=== PATIENT | female | born 1960 | race Caucasian/White ===

== ENCOUNTER 2017-05-15 06:35 | Emergency (ER) | payer OTHER ==
[2017-05-15] MEDS ORDERED: Meclizine TAB* 12.5 MG PO ONE (07:35)
[2017-05-15] MEDS ORDERED: Ondansetron INJ* 2 MG/ML VIAL IV ONE (07:35)
[2017-05-15] MEDS ORDERED: NS 0.9% 1000 ML* 2,000 ML IV ONE (07:35)
[2017-05-15 08:10] LABS: Hematocrit 44 % (35-47); Hemoglobin 14.8 g/dl (12.0-16.0); Mean Corpuscular HGB Conc 34 g/dl (31-36); Mean Corpuscular Hemoglobin 33 pg (27-31); Mean Corpuscular Volume 97 fL (80-97); Mean Platelet Volume 8 um3 (7.4-10.4); Red Blood Count 4.55 10^6/ul (4.0-5.4); Red Cell Distribution Width 13 % (10.5-15)
[2017-05-15 08:22] LABS: Albumin 4.5 g/dL (3.2-5.2); BUN/Creatinine Ratio 20.9 (8-20); Calcium 9.9 mg/dL (8.6-10.3); EGFR African American 116.7 (>60); EGFR Non-African American 90.7 (>60); Globulin 3.2 g/dL (2-4); Magnesium 1.9 mg/dL (1.9-2.7); Potassium 4.1 mmol/L (3.5-5.0); Total Bilirubin 0.5 mg/dL (0.2-1.0); Total Protein 7.7 g/dL (6.4-8.9)
[2017-05-15 08:24] LABS: Troponin I 0.01 ng/mL (<0.04)
[2017-05-15 08:50] LABS: TSH (Thyroid Stimulating Horm) 1.25 mcIU/mL (0.34-5.60)
--- NOTE | 2017-05-15 08:57 | RAD ---
INDICATION: Syncope COMPARISON: None TECHNIQUE: Noncontrast axial source images were acquired from the skull base to the vertex. FINDINGS: Ventricles/sulci: The ventricles and cisterns are normal in size and configuration for age. Brain parenchyma: There is no focal parenchymal finding, evidence of intracranial mass, or intracranial mass effect. Intracranial hemorrhage:None. Extra-axial spaces: There are no abnormal extra axial fluid collections or evidence of extra-axial mass. Calvarium: There is no calvarial fracture or other calvarial abnormality. Scalp: There is no evidence of scalp or extracalvarial soft tissue abnormality. Paranasal sinuses/mastoid: The paranasal sinuses and mastoid air cells are clear. Other: None. IMPRESSION: NEGATIVE EXAMINATION
[2017-05-15 10:17] VITALS: BP 130/83
--- NOTE | 2017-05-15 19:00 | ED ---
Yary Mabry Seung-Jae, scribed for Jeremy Massey MD on 05/15/17 at 0742 . Dizziness - HPI Summary HPI Summary: Pt is a 57 y/o F presenting to the ED w/ c/o dizziness. Dizziness was described as a pass out feeling accompanied by a "ship rocking" sensation and was onset this morning around 06:00am. Associated Sx included nausea, ringing in the ears and blurred vision. Pt denies presence of CP, SOB, STILL, burning dysuria, congestion, slurred speech, calf tenderness, weakness in legs, slurred speech, and decreased hearing. Dizziness does not seem to be aggravated by changing positions of the body. Pt states that she had been blistered by a plant thorn a week ago while gardening and is concerned that this may be the cause of her dizziness. She denies any tick bites. Pt does not smoke, but drinks occasionally and denies any recent infections. Pt has no fmhx of heart disease. - History Of Current Complaint Chief Complaint: EDDizziness Stated Complaint: DIZZY Hx Obtained From: Patient Onset/Duration: Suddenly Timing: Intermittent Episode Lasting Character: Lightheaded Aggravating Factor(s): Nothing Alleviating Factor(s): Nothing Associated Signs And Symptoms: Positive: Nausea, Tinnitus, Visual Changes. Negative: Chest Pain, SOB - Allergies/Home Medications Allergies/Adverse Reactions: Allergies Allergy/AdvReac Type Severity Reaction Status Date / Time Oxycodone [From Oxycontin] Allergy Vomiting Verified 06/07/16 08:29 PMH/Surg Hx/FS Hx/Imm Hx Endocrine/Hematology History: Denies: Hx Diabetes Cardiovascular History: Reports: Hx Hypertension - CONTROL WITH MEDS, Hx Valvular Heart Disease - AORTIC VALVE REPLACEMENT, 2010 ([facility]) Denies: Hx Pacemaker/ICD Respiratory History: Denies: Hx Asthma Musculoskeletal History: Reports: Hx Arthritis - LEFT KNEE Sensory History: Reports: Hx Contacts or Glasses - READING GLASSES Denies: Hx Hearing Aid Opthamlomology History: Reports: Hx Contacts or Glasses - READING GLASSES Psychiatric History: Denies: Hx Panic Disorder - Surgical History Surgery Procedure, Year, and Place: 1978 & 1985 LEFT KNEE MENISCUS REPAIR X 2 - / [place] [facility] [place] CSE[place] 2[place]. 2010 AORTIC HEART VALVE REPLACEMENT, [employer] Hx Anesthesia Reactions: Yes - N/V WITH GENERAL Infectious Disease History: No Infectious Disease History: Denies: Traveled Outside the [place] in Last 30 Days - Family History Known Family History: Negative: Other - no stroke in family history no adverse reaction to anesthesia. - Social History Alcohol Use: Weekly Substance Use Type: Reports: None Smoking Status (MU): Never Smoked Tobacco Review of Systems Constitutional: Negative Positive: Blurred Vision ENT: Negative Positive: Other - tinnitus Cardiovascular: Negative Negative: Chest Pain Respiratory: Negative Negative: Shortness Of Breath Positive: Nausea. Negative: Diarrhea Genitourinary: Negative Negative: dysuria Musculoskeletal: Negative Skin: Negative Neurological: Other - positive dizziness Negative: Headache, Weakness Psychological: Normal All Other Systems Reviewed And Are Negative: Yes Physical Exam - Summary Physical Exam Summary: The patient is well-nourished in no acute distress and in no acute pain. Diaphoretic. skin color reflects adequate perfusion. HEENT: The head is normocephalic and atraumatic. The pupils are equal and reactive. Nares are patent and without drainage. Mouth reveals moist mucous membranes and the throat is without erythema and exudate. The external ears are intact. The ear canals are patent and without drainage. The tympanic membranes are intact. Neck is supple with full range of motion and non-tender. There are no carotid bruits. There is no neck vein distension. Respiratory: Chest is non-tender. Lungs are clear to auscultation and breath sounds are symmetrical and equal. Cardiovascular: Hear is regular rate and rhythm. There is no murmur or rub auscultated. There is no peripheral edema and pulses are symmetrical and equal. Abdomen: The abdomen is soft and non-tender. There are normal bowel sounds heard in all four quadrants and there is no organomegaly palpated. Musculoskeletal: There is no back pain noted. Extremities are non-tender with full range of motion. There is good capillary refill. There is no peripheral edema or calf tenderness elicited. Neurological: Patient is alert and oriented to person, place and time. The patient has symmetrical motor strength in all four extremities. Cranial nerves are grossly intact. Deep tendon reflexes are symmetrical and equal in all four extremities. Postive nystagmus. Negative facial droop. Psychiatric: The patient has an appropriate affect and does not exhibit any anxiety or depression. Triage Information Reviewed: Yes Vital Signs On Initial Exam: Initial Vitals Temp Pulse Resp BP Pulse Ox 96.6 F 86 22 185/94 100 05/15/17 06:41 05/15/17 06:41 05/15/17 06:41 05/15/17 06:41 05/15/17 06:41 Vital Signs Reviewed: Yes - Landing Coma Scale Coma Scale Total: 15 Diagnostics - Vital Signs Vital Signs Temp Pulse Resp BP Pulse Ox 05/15/17 06:45 18 05/15/17 06:43 96.6 F 77 22 189/94 100 05/15/17 06:41 96.6 F 86 22 185/94 100 - Laboratory Lab Results: Lab Results 05/15/17 05/15/17 05/15/17 Range/Units 07:55 07:55 07:55 WBC 7.0 (3.5-10.8) 10^3/ul RBC 4.55 (4.0-5.4) 10^6/ul Hgb 14.8 (12.0-16.0) g/dl Hct 44 (35-47) % MCV 97 (80-97) fL MCH 33 H (27-31) pg MCHC 34 (31-36) g/dl RDW 13 (10.5-15) % Plt Count 253 (150-450) 10^3/ul MPV 8 (7.4-10.4) um3 Neut % (Auto) 68.6 (38-83) % Lymph % (Auto) 20.0 L (25-47) % Carroll % (Auto) 9.0 (1-9) % Eos % (Auto) 1.9 (0-6) % Baso % (Auto) 0.5 (0-2) % Absolute Neuts (auto) 4.8 (1.5-7.7) 10^3/ul Absolute Lymphs (auto) 1.4 (1.0-4.8) 10^3/ul Absolute Monos (auto) 0.6 (0-0.8) 10^3/ul Absolute Eos (auto) 0.1 (0-0.6) 10^3/ul Absolute Basos (auto) 0 (0-0.2) 10^3/ul Absolute Nucleated RBC 0 10^3/ul Nucleated RBC % 0 Sodium 137 (133-145) mmol/L Potassium 4.1 (3.5-5.0) mmol/L Chloride 102 (101-111) mmol/L Carbon Dioxide 26 (22-32) mmol/L Anion Gap 9 (2-11) mmol/L BUN 14 (6-24) mg/dL Creatinine 0.67 (0.51-0.95) mg/dL Est GFR ( Amer) 116.7 (>60) Est GFR (Non-Af Amer) 90.7 (>60) BUN/Creatinine Ratio 20.9 H (8-20) Glucose 92 (70-100) mg/dL Lactic Acid 1.0 (0.5-2.0) mmol/L Calcium 9.9 (8.6-10.3) mg/dL Magnesium 1.9 (1.9-2.7) mg/dL Total Bilirubin 0.50 (0.2-1.0) mg/dL AST 23 (13-39) U/L ALT 30 (7-52) U/L Alkaline Phosphatase 64 (34-104) U/L Troponin I 0.01 (<0.04) ng/mL Total Protein 7.7 (6.4-8.9) g/dL Albumin 4.5 (3.2-5.2) g/dL Globulin 3.2 (2-4) g/dL Albumin/Globulin Ratio 1.4 (1-3) TSH 1.25 (0.34-5.60) mcIU/mL Result Diagrams: 05/15/17 07:55 05/15/17 07:55 Lab Statement: Any lab studies that have been ordered have been reviewed, and results considered in the medical decision making process. - CT Brain CT CT Interpretation: No Acute Changes - Impression: negative exam CT Interpretation Completed By: Radiologist - EKG 06:56 Cardiac Rate: NL - 77 bpm EKG Rhythm: Sinus Rhythm ST Segment: Normal EKG Interpretation: LBBB, normal axis Dizzy Course/Dx - Course Assessment/Plan: t is a 57 y/o F presenting to the ED w/ c/o dizziness. Dizziness was described as a pass out feeling accompanied by a "ship rocking" sensation and was onset this morning around 06:00am. EKG was normal, and Brain CT was a negative exam. Pt was treated in ED with Zofran, Meclizine and fluid. Pt is D/C with f/u with Dr. Hong. - Diagnoses Differential Diagnosis/HQI/PQRI: CVA, Hypovolemia, Labyrinthitis, Metabolic Abnormality, Myocardial Infarction, Other - dehydration, meniere's disease Provider Diagnoses: Dehydration, Labyrinthitis Discharge - Discharge Plan Condition: Stable Disposition: HOME Prescriptions: Meclizine TAB* [Antivert 12.5 TAB*] 25 mg PO QID #30 tab Patient Education Materials: Meclizine (By mouth), Dehydration (ED), Labyrinthitis (ED) Forms: *Work Release Referrals: Angelo Hong MD [Primary Care Provider] - 2 Days The documentation as recorded by the Yary rodriguez Seung-Jae accurately reflects the service I personally performed and the decisions made by , Jeremy Massey MD.
== END 2017-05-15 10:17 | disposition home or self-care (01) ==
LOC: ED 06:35
DX: E86.0 Dehydration (principal); H83.09 Labyrinthitis, unspecified ear; R11.0 Nausea; I10 Essential (primary) hypertension; Z95.4 Presence of other heart-valve replacement; Z88.5 Allergy status to narcotic agent
CPT/HCPCS: 36415; 70450; 80053; 83605; 83735; 84443; 84484; 85025; 93005; 96361; 96374; 99284

== ENCOUNTER 2018-05-05 18:28 | Emergency (ER) | payer OTHER ==
--- NOTE | 2018-05-05 19:41 | RAD ---
INDICATION: Left foot injury. TECHNIQUE: 3 views of the left foot were obtained. FINDINGS: There is diffuse soft tissue swelling. There is a small linear bony density adjacent to the lateral anterior aspect of the calcaneus most consistent with a small avulsion fracture fragment. There is mild osteoarthritic changes in the first metatarsal-phalangeal joint. IMPRESSION: SMALL AVULSION FRACTURE FRAGMENT ARISING FROM THE LATERAL CALCANEUS.
--- NOTE | 2018-05-05 20:14 | RAD ---
INDICATION: Left lower leg injury. TECHNIQUE: 2 views of the left lower leg were obtained. FINDINGS: The bones are in normal alignment. There is lateral soft tissue swelling. There is a small linear avulsion fracture fragment arising from the lateral calcaneus. IMPRESSION: SMALL AVULSION FRACTURE FRAGMENT ARISING FROM THE LATERAL CALCANEUS.
[2018-05-05 20:50] VITALS: BP 118/68
--- NOTE | 2018-05-05 20:59 | ED ---
Lower Extremity - HPI Summary HPI Summary: Patient is a 58-year-old female presenting to the ED [place] and feeling as though she twisted her ankle and the lateral part of her right foot. She endorses ecchymosis to the medial and lateral side of the foot extending into the dorsum of the foot. She was able to ambulate for approximately 30-45 minutes afterwards. Denies taking any medication prior to arrival. She has never injured the foot or ankle in the past. Pain radiates just superior to the ankle joint without extension up into the knee or just inferior to the knee. Denies any pain to the toes. Pulses +2 bilaterally. Good cap refill. - History of Current Complaint Chief Complaint: EDExtremityLower Stated Complaint: RT ANKLE INJURY Time Seen by Provider: 05/05/18 18:50 Hx Obtained From: Patient Mechanism Of Injury: Twisted Onset of Pain: Minutes Onset/Duration: Minutes Severity Initially: Moderate Severity Currently: Moderate Pain Intensity: 3 Pain Scale Used: 0-10 Numeric Timing: Constant Location: Is Discrete @ - left lateral foot Associated Signs And Symptoms: Positive: Bruising. Negative: Swelling, Redness , Fever, Weakness Aggravating Factor(s): Standing, Ambulation Alleviating Factor(s): Rest Able to Bear Weight: No - Risk Factors Gout Risk Factors: Negative DVT Risk Factors: Negative Septic Arthritis Risk Factor: Negative - Allergies/Home Medications Allergies/Adverse Reactions: Allergies Allergy/AdvReac Type Severity Reaction Status Date / Time oxycodone Allergy Vomiting Verified 05/05/18 18:35 PMH/Surg Hx/FS Hx/Imm Hx Previously Healthy: Yes Endocrine/Hematology History: Denies: Hx Diabetes Cardiovascular History: Reports: Hx Hypertension - CONTROL WITH MEDS, Hx Valvular Heart Disease - AORTIC VALVE REPLACEMENT, 2010 ([facility]) Denies: Hx Pacemaker/ICD Respiratory History: Denies: Hx Asthma Musculoskeletal History: Reports: Hx Arthritis - LEFT KNEE Sensory History: Reports: Hx Contacts or Glasses - READING GLASSES Denies: Hx Hearing Aid Opthamlomology History: Reports: Hx Contacts or Glasses - READING GLASSES Psychiatric History: Denies: Hx Panic Disorder - Surgical History Surgery Procedure, Year, and Place: 1978 & 1985 LEFT KNEE MENISCUS REPAIR X 2 - [place]/ 2007 ONCE AT [facility] [place]. 1991 & 1993 CSECTIONS X 2, [place]. 2010 AORTIC HEART VALVE REPLACEMENT, [employer] Hx Anesthesia Reactions: Yes - N/V WITH GENERAL Infectious Disease History: No Infectious Disease History: Denies: Traveled Outside the [place] in Last 30 Days - Family History Known Family History: Negative: Other - no stroke in family history no adverse reaction to anesthesia. - Social History Occupation: Employed Full-time Lives: With Family Alcohol Use: Weekly Hx Substance Use: No Substance Use Type: Reports: None Smoking Status (MU): Never Smoked Tobacco Review of Systems Constitutional: Negative Negative: Fever, Chills, Fatigue, Skin Diaphoresis Negative: Palpitations, Chest Pain Negative: Shortness Of Breath Genitourinary: Negative Positive: no symptoms reported, see HPI Positive: Arthralgia - left lateral foot pain Positive: Bruising Neurological: Negative All Other Systems Reviewed And Are Negative: Yes Physical Exam Triage Information Reviewed: Yes Vital Signs On Initial Exam: Initial Vitals Temp Pulse Resp BP Pulse Ox 98.5 F 103 18 151/85 97 05/05/18 18:31 05/05/18 18:31 05/05/18 18:31 05/05/18 18:31 05/05/18 18:31 Vital Signs Reviewed: Yes Appearance: Positive: Well-Appearing, No Pain Distress Skin: Positive: Warm, Skin Color Reflects Adequate Perfusion, Other - ecchymosis to the lateral foot Eyes: Positive: EOMI, BRANDEE, Conjunctiva Clear Neck: Positive: Supple, No Lymphadenopathy Respiratory/Lung Sounds: Positive: Clear to Auscultation, Breath Sounds Present Cardiovascular: Positive: RRR, Pulses are Symmetrical in both Upper and Lower Extremities Musculoskeletal: Positive: Pain @ - left lateral foot Neurological: Positive: Speech Normal Psychiatric: Positive: Normal, Affect/Mood Appropriate AVPU Assessment: Alert Diagnostics - Vital Signs Vital Signs Temp Pulse Resp BP Pulse Ox 05/05/18 20:49 98.1 F 81 16 118/68 99 05/05/18 18:31 98.5 F 103 18 151/85 97 - Laboratory Lab Statement: Any lab studies that have been ordered have been reviewed, and results considered in the medical decision making process. Lower Extremity Course/Dx - Course Course Of Treatment: On physical examination, strength intact. No numbness or tingling. Small avulsion fracture fragment arising from the lateral calcaneus. Bulky dressing with posterior splint applied. Patient will remain nonweightbearing. Elevation and ibuprofen at this time. She will follow-up with orthopedics in 2-3 days. Note is given for work. While casting is generally not preferred for non-displaced fractures and early range of motion is usually course of treatment, will defer this to ortho and bulky dressing with non-weight bearing preferred until further evaluation. - Diagnoses Differential Diagnosis/HQI/PQRI: Positive: Sprain, Strain, Other - calcaneal fracture Provider Diagnoses: Avulsion fracture of calcaneus Discharge - Sign-Out/Discharge Documenting (check all that apply): Discharge/Admit/Transfer - Discharge Plan Condition: Stable Disposition: HOME Patient Education Materials: Calcaneal Fracture (ED) Forms: *Work Release Referrals: Aneglo Hong MD [Primary Care Provider] - Jamil Sprague MD [Medical Doctor] - Additional Instructions: Please follow up with orthopedics next week Call on Monday morning to make an appt Ibuprofen 600mg three times daily for 4-5 days DO NOT BEAR ANY WEIGHT TO THE FOOT Crutches for ambulation Elevate - Billing Disposition and Condition Condition: STABLE Disposition: Home
== END 2018-05-05 20:49 | disposition home or self-care (01) ==
LOC: ED 18:28
DX: S92.002A Unspecified fracture of left calcaneus, initial encounter for closed fracture (principal); X50.0XXA Overexertion from strenuous movement or load, initial encounter; Y92.39 Other specified sports and athletic area as the place of occurrence of the external cause; I10 Essential (primary) hypertension; Z79.899 Other long term (current) drug therapy; Z88.5 Allergy status to narcotic agent; Z95.2 Presence of prosthetic heart valve
CPT/HCPCS: 99282

== ENCOUNTER 2019-12-07 16:48 | Emergency (ER) | payer OTHER ==
--- OUTSIDE RECORDS SUMMARY | 2019-12-07 17:15 | XMS REPORT | Summary of Care ---
:1960 Author Organization [facility] Address [address] [place] [address] [address] Care Team Providers Name Role Phone Angelo Hong Primary Care Provider Reason for Visit Reason Comments Hand Pain Encounter Details Date Type Department Care Team Description 10/18/2019 Office Visit BFS Occupational [place], Primary localized Therapy Oral, osteoarthrosis of right [address] OTR/L hand (Primary Dx) [id number] [facility] [address] [place] [address] [phone] Allergies Active Allergy Reactions Severity Noted Date Comments Hydrocodone GI Reaction 03/24/2011 vomiting documented as of this encounter (statuses as of 10/18/2019) Medications Medication Sig Dispensed Refills Start Date End Date Status acetaminophen (TYLENOL) Take 1-2 Tabs by 0 06/20/2011 Active 500 MG Oral Tab mouth EVERY FOUR HOURS NEEDED. Ibuprofen (MOTRIN PO) Take by mouth 0 Active NEEDED. ALPRAZolam (XANAX) 0.25 Take 1 Tab by 60 Tab 0 05/24/2019 Active MG Oral TabIndications: mouth TWO TIMES Anxiety state DAILY NEEDED (insomnia). Max Daily Amount: 0.5 mg. ondansetron (ZOFRAN) 4 Take 4 mg by 21 Tab 0 05/24/2019 Active MG Oral Tab mouth EVERY EIGHT HOURS NEEDED (nauase). Aspirin 81 MG Oral Tab Take 1 Tab by 30 Tab 0 07/10/2019 Active EC mouth DAILY. metoprolol succinate Take 0.5 Tabs by 135 Tab 3 07/10/2019 Active (TOPROL XL) 50 MG Oral mouth TWICE TABLET SR 24 DAILY. HRIndications: Essential hypertension HYDROcodone-acetaminophe Take 1-2 Tabs by 30 Tab 0 09/13/2019 Active n (NORCO) 5-325 MG Oral mouth EVERY FOUR Tab HOURS NEEDED (pain). Max Daily Amount: 12 Tabs. 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 Smith 02/21/19 AORTIC VALVE REPLACEMENT 06/15/11 -- bioprosthetic BMI 27.0-27.9,adult 06/01/2011 Essential hypertension 03/29/2011 Palpitations 03/29/2011 Osteoarthritis of knee 07/16/2008 Overview: Dr Calixto 06/06. Other tear of cartilage or meniscus of knee, current 06/02/2008 Overview: L knee partial meniscectomy Dr Calixto Anxiety state, unspecified 03/22/2007 Panic disorder without agoraphobia 03/22/2007 documented as of this encounter (statuses as of 10/18/2019) Resolved Problems Problem Noted Date Resolved Date Sprain of neck 07/09/2014 01/12/2017 Sprain of thoracic region 07/09/2014 01/12/2017 Aortic regurgitation 03/29/2011 04/16/2014 Overview: 03/25/11 TTE FINAL IMPRESSION: Probable bicuspid aortic valve with mild stenosis and moderate to severe aortic regurgitation.LEONARDA=1.5cm2. Mixed hyperlipidemia 06/02/2008 03/15/2013 Unspecified essential hypertension 03/22/2007 01/12/2017 Sciatica 03/22/2007 01/30/2008 documented as of this encounter (statuses as of 10/18/2019) Immunizations Name Administration Dates Next Due dT Vaccine 03/29/2005 documented as of this encounter Social History Tobacco Use Types Packs/Day Years Used Date Former Smoker Quit: 10/30/1982 Smokeless Tobacco: Never Used Comments: has not smoked in 30 years Alcohol Use Drinks/Week oz/Week Comments Yes 0 Standard drinks or equivalent 0.0 OCCASIONAL Alcohol Habits Answer Date Recorded How often do you have a drink containing alcohol? Not asked How many drinks containing alcohol do you have on a typical 3 or 4 02/12/2019 day when you are drinking? How often do you have six or more drinks on one occasion? Not asked Sex Assigned at Date Recorded Not on file Job Start Date Occupation Industry Not on file Not on file Not on file Travel History Travel Start Travel End No recent travel history available. documented as of this encounter Last Filed Vital Signs Not on filedocumented in this encounter Progress Notes Oral Lamb, OTR/Milo - 10/18/2019 9:00 AM EST [facility] Treatment Note Outpatient Occupational Therapy Services [facility] [address] [place] [address] Patient: Arlyn Eldridge : 1960 Date of Service: 10/18/2019 Referring Physician: Nirmala Diego Primary Diagnosis: ICD-9-CM ICD-10-CM 1. Primary localized osteoarthrosis of right hand 715.14 M19.041 Systems Review/History of Current Problem: Pt is a 59 year old Right hand dominant female who is 6 weeks s/p Right thumb CMC tendon arthroplasty with partial trapezoidectomy. (DOS: 09/13/2019) Subjective Comments: Pt reports the thumb remains stiff, however ROM is gradually improving. Pt reports thumb is sore with intermittent mechanical pain. 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 Pt reports good compliance with splint weaning stating she has not needed to use it. Prior Functional Status: Moderate impairment, pain, or functional limitation Allergies, medications, and problem list were reviewed with the Patient. Interventions: Time In: 0900 Time Out: 934 Visit Number: 2 Pain at the START of Treatment: 0/10 Pain at the END of Treatment: 0/10 Precautions: None Range of Motion: Thumb ROM R Thumb - MCP Joint: 25 R Thumb - IP Joint: 52 R Thumb - Palmar Abduction: 44 R Thumb - Opposition: Tip Ring Wrist ROM R Wrist - Flexion: 50 R Wrist - Extension: 62 Strength Testin-3 Trial Testing R - Drapery Cutter Machine #1: 10 R - Drapery Cutter Machine #2: 11 R - Drapery Cutter Machine #3: 15 R - Drapery Cutter Machine Average: 12 L - Drapery Cutter Machine #1: 52 L - Drapery Cutter Machine #2: 46 L - Drapery Cutter Machine #3: 47 L - Drapery Cutter Machine Average: 48.33 Fluidotherapy (05939) Body Area: Right hand/wrist as pt performed thumb AROM into flexion/opposition Max Temp: 115 Total Minutes: 15 Therapeutic Exercises (23806) Additional Exercises: Updated pt's home exercise program to now include Right resident services coordinator strengthening andthumb intrinsic strengthening required for dynamic stability of the the CMC joint and overall pinch strength using Red Therapy Putty. Issued pt handout describing and illustrating each exercise as well as Red putty for home. Pt verbalized and demonstrated understanding. Total Minutes: 10 Assessment: Pt is a 59 year old Right hand dominant female who is 6 weeks s/p Right thumb CMC tendon arthroplasty with partial trapezoidectomy. Pt demonstrates decreased AROM of the Right thumb and wrist following 3 weeks of immobilization. Thumb CMC joint remains stable. Pt has begun to wean from the thumb spica orthosis and began an AROM program this date. Rehabilitative Prognosis: Good Goals: Short Term: (1) Pt will be independent with home exercise program. Met 10/04/2019 (2) Pt will increase AROM of Right thumb MP flexion to 30 by 3 weeks. (3) Pt will increase AROM of Right thumb IP flexion to 50 by 3 weeks. Met (4) Pt will increase AROM of Right thumb opposition to tip of small finger by 3 weeks. (5) Pt will increase AROM of Right wrist flexion to 50 by 3 weeks. Met 10/18 (6) Pt will increase AROM of Right wrist extension to 60 by 3 weeks. Met Medical Secretary: (1) Pt will be able to write with Right hand by 6 weeks. (2) Pt will be able to type and use computer mouse with Right hand by 6 weeks. (3) Pt will be able to resident services coordinator hair brush with Right hand by 6 weeks. Plan: Pt is scheduled to follow up with this office on 11/05/2018 to assess progress with home program. Total UNTIMED Code Minutes: 15 Total TIMED Code Minutes: 10 Total Treatment Minutes: 25 Author: KADEN Velázquez 10/18/2019 09:36 documented in this encounter Plan of Treatment Date Type Specialty Care Team Description 11/05/2019 Office Visit Occupational Therapy Oral Lamb, OTR/L [address] [facility] [address] [place] [address] [phone] 11/13/2019 Office Visit Orthopedics Anette Mullins, TED [address] [address] 01/08/2020 Office Visit Cardiology Sushila Kelly CRNP [address] [address] 02/19/2020 Office Visit Cardiac Surgery Dedrick Smith MD [address] [address] Health Maintenance Due Date Last Done Comments PNEUMOCOCCAL 0-64 YRS (1 of 01/09/1966 1 - PPSV23) Colonoscopy 01/09/2010 ZOSTER IMMUNIZATION SERIES 01/09/2010 (1 of 2) DTaP/Tdap/Td Vaccines (2 - 03/29/2015 03/29/2005 Tdap) PAP SMEAR 01/01/2019 01/02/2016, 01/01/2016, 03/15/2013, Additional history exists MAMMOGRAM (SCREENING) 06/08/2019 06/08/2018, 08/18/2015, 03/20/2013, Additional history exists INFLUENZA VACCINE (#1) 2019 LIPID DISORDER SCREENING 07/24/2019 07/24/2018, 06/06/2017, 09/09/2016, Additional history exists DEPRESSION SCREENING 05/24/2020 05/24/2019 DIABETES SCREENING 05/24/2020 05/24/2019, 02/25/2019, 02/24/2019, Additional history exists HEPATITIS A IMMUNIZATION Aged Out No longer eligible SERIES based on patient's age to complete this topic HPV IMMUNIZATION SERIES Aged Out No longer eligible based on patient's age to complete this topic MENINGOCOCCAL VACCINE IMM Aged Out No longer eligible based on patient's age to complete this topic documented as of this encounter Goals Goal Patient Goal Associated Recent Patient-Stated? Author Type Problems Progress Blood Pressure Blood Pressure 136/78 No Evelyn, < 140/90 (10/10/2019 PILO Zamora 10:51 AM EST) Note: This is an individualized treatment (blood pressure) goal for Arlyn Pedraza Jazmyn: Displayed above (on the left) is your goal for blood pressure control. Your most recent blood pressure is also shown above, on the right. You should try to achieve blood pressures that are lower than your goal listed above (on the left). Take all prescribed medications as Self-management No Sera Rivas FNP directed Note: This is an individualized self-management goal for Arlyn Pedraza Jazmyn: Please take all prescribed medications as directed. 1. Do not skip doses. If you cannot afford your medications, talk with your doctor. 2. Use a pill reminder system such as a pill box if needed. Your pharmacist can help you with this. 3. Contact your Pharmacy 5 days before your medication runs out. If you cannot take your medications for any reasons, talk with your doctor. 4. Please bring all of your medication bottles and inhalers (or a list of all your medications/inhalers) with you to every visit. Potential barriers to meeting all of your care plan goals will continue to be addressed on an ongoing basis. documented as of this encounter Implants Implanted Type Area Knife Cutter Device Shelf Model / Identifier Expiration Serial / Lot Date Valve, Inspiris Resilia Aortic 21mm - [id number] N/A: Heart [employer] 11/01/2020 [id number] / Implanted: Qty: 1 on 02/21/2019 by Dedrick Smith MD at [facility] SCI[employer] [id number] / [employer] [place] - [id number] AR[employer]REX 05/29/2024 [id number] / Implanted: Qty: 1 on 09/13/2019 by Nirmala Diego MD at [facility] / [id number] documented as of this encounter Results Not on filedocumented in this encounter Visit Diagnoses Diagnosis Primary localized osteoarthrosis of right hand documented in this encounter Insurance Payer Benefit Plan / Subscriber ID Effective Dates Phone Address Type Group AETNA COMMERCIAL AETNA xxxxxxxxxx 2019-Present Aet[employer] documented as of this encounter Advance Directives Code Status Date Activated Date Inactivated Comments Full Code 02/21/2019 1:20 PM 02/25/2019 1:42 PM Does the patient have decision Yes making capacity? Order was discussed with: Unable to determine at this time I discussed all options and Full Code surgery 02/21/19 patient/surrogate requested and agreed to:
--- OUTSIDE RECORDS SUMMARY | 2019-12-07 17:15 | XMS REPORT | Summary of Care ---
:1960 Author Organization [facility] Address [address] [address] Care Team Providers Name Role Phone Angelo Hong Primary Care Provider Reason for Referral MRI/CAT/PET Scan (Routine) Status Reason Specialty Diagnoses / Referred By Referred To Procedures Contact Contact Pending Review Diagnoses Right sided abdominal pain Epigastric abdominal pain Nakul Rivas US ABDOMEN COMPLETE PILO Zamora [address] [place] [address] Reason for Visit Reason Comments Abdominal Pain pt complains of right side upper and lower abdominal pain that radiates to her back. Pt states there are no other associated symptoms Encounter Details Date Type Department Care Team Description 11/28/2019 Office Visit [facility] Sera Rivas, Right sided abdominal pain (Primary Dx); Practice DONATIONS ATTENDANT Epigastric abdominal pain; [address] [place] [address] Anxiety state [place], [place] [id number] [place] [address] [phone] Allergies Active Allergy Reactions Severity Noted Date Comments Hydrocodone GI Reaction 03/24/2011 vomiting documented as of this encounter (statuses as of 11/28/2019) Medications Medication Sig Dispensed Refills Start Date End Date Status acetaminophen Take 1-2 0 06/20/2011 Active (TYLENOL) 500 MG Tabs by Oral Tab mouth EVERY FOUR HOURS NEEDED. Ibuprofen (MOTRIN Take by 0 Active PO) mouth NEEDED. ondansetron Take 4 mg by 21 Tab 0 05/24/2019 Active (ZOFRAN) 4 MG Oral mouth EVERY Tab EIGHT HOURS NEEDED (nauase). Aspirin 81 MG Oral Take 1 Tab 30 Tab 0 07/10/2019 Active Tab EC by mouth DAILY. metoprolol Take 0.5 135 Tab 3 07/10/2019 Active succinate (TOPROL Tabs by XL) 50 MG Oral mouth TWICE TABLET SR 24 DAILY. HRIndications: Essential hypertension HYDROcodone-acetami Take 1-2 30 Tab 0 09/13/2019 Active nophen (NORCO) Tabs by 5-325 MG Oral Tab mouth EVERY FOUR HOURS NEEDED (pain). Max Daily Amount: 12 Tabs. ALPRAZolam (XANAX) Take 1 Tab 60 Tab 0 11/28/2019 Active 0.25 MG Oral by mouth TWO TabIndications: TIMES DAILY Anxiety state NEEDED (insomnia). Max Daily Amount: 0.5 mg. ALPRAZolam (XANAX) Take 1 Tab 60 Tab 0 05/24/2019 Discontinued 0.25 MG Oral by mouth TWO 0 (Reorder) TabIndications: TIMES DAILY Anxiety state NEEDED (insomnia). Max Daily Amount: 0.5 mg. documented as of this encounter (statuses as of 11/28/2019) Active Problems Problem Noted Date CMC arthritis [...] as of this encounter (statuses as of 11/28/2019) Resolved Problems Problem Noted Date Resolved Date Sprain of neck 07/09/2014 01/12/2017 Sprain of thoracic region 07/09/2014 01/12/2017 Aortic regurgitation 03/29/2011 04/16/2014 Overview: 03/25/11 TTE FINAL IMPRESSION: Probable bicuspid aortic valve with mild stenosis and moderate to severe aortic regurgitation.LEONARDA=1.5cm2. Mixed hyperlipidemia 06/02/2008 03/15/2013 Unspecified essential hypertension 03/22/2007 01/12/2017 Sciatica 03/22/2007 01/30/2008 documented as of this encounter (statuses as of 11/28/2019) Immunizations Name Administration Dates Next Due dT [...] of this encounter Last Filed Vital Signs Vital Sign Reading Time Taken Comments Blood Pressure 110/70 11/28/2019 10:23 AM EST Pulse 79 11/28/2019 10:23 AM EST Temperature 36.7 11/28/2019 10:23 AM EST C (98 F) Respiratory Rate - - Oxygen Saturation 97% 11/28/2019 10:23 AM EST Inhaled Oxygen Concentration - - Weight 77.1 kg (170 lb) 11/28/2019 10:23 AM EST Height 162.6 cm (5' 4") 11/28/2019 10:23 AM EST Body Mass Index 29.18 11/28/2019 10:23 AM EST documented in this encounter Patient Instructions Patient InstructionsSera Rivas FNP - 11/28/2019 10:20 AM ESTSchedule abdominal Ultrasound Lab work today I will notify you of results Try OTC nexium or pepcid AC or tagamet documented in this encounter Progress Notes Sera Rivas FNP - 11/28/2019 10:20 AM EST PATIENT: Arlyn Eldridge : 1960 DATE OF SERVICE: 11/28/2019 Chief Complaint Patient presents with Abdominal Pain pt complains of right side upper and lower abdominal pain that radiates to her back. Pt states there are no other associated symptoms SUBJECTIVE: Arlyn Eldridge is a 59-y.o. female who is here with 2 weeks of pain in epigastric pain and pain in RUQ and into her side. No nausea, vomiting. She has had some reflux and tried some omprazole but this caused some diarrhea. She takes an enteric coated baby aspirin daily. No black or bloody stools. No lower abdominal pain. The patient denies dysuria, frequency or hematuria. No fever or chills. Pain is dull but occasional sharp stabs. Not bad enough to take any pain meds. She asks for refill xanax for her chronic anxiety. She denies abuse or diversion. Patient Active Problem List Diagnosis Date Noted CMC arthritis 09/02/2019 Postoperative anemia due to acute blood loss 02/21/2019 Aortic valve stenosis 02/12/2019 Bioprosthetic aortic valve stenosis s/p AORTIC VALVE REPLACEMENT 06/15/11 Ophthalmic migraine 01/12/2017 Pre-diabetes 01/12/2017 S/P AVR 04/16/2014 S/p bioprosthetic AORTIC VALVE REPLACEMENT -- Dr. Smith 02/21/19 AORTIC VALVE REPLACEMENT 06/15/11 -- bioprosthetic BMI 27.0-27.9,adult 06/01/2011 Essential hypertension 03/29/2011 Palpitations 03/29/2011 Osteoarthritis of knee 07/16/2008 Dr Calixto 06/06. Other tear of cartilage or meniscus of knee, current 06/02/2008 L knee partial meniscectomy Dr Calixto Anxiety state, unspecified 03/22/2007 Panic disorder without agoraphobia 03/22/2007 Current Outpatient Medications Medication Sig acetaminophen (TYLENOL) 500 MG Oral Tab Take 1-2 Tabs by mouth EVERY FOUR HOURS NEEDED. ALPRAZolam (XANAX) 0.25 MG Oral Tab Take 1 Tab by mouth TWO TIMES DAILY NEEDED (insomnia).Max Daily Amount: 0.5 mg. Aspirin 81 MG Oral Tab EC Take 1 Tab by mouth DAILY. HYDROcodone-acetaminophen (NORCO) 5-325 MG Oral Tab Take 1-2 Tabs by mouth EVERY FOUR HOURS NEEDED (pain). Max Daily Amount: 12 Tabs. Ibuprofen (MOTRIN PO) Take by mouth NEEDED. metoprolol succinate (TOPROL XL) 50 MG Oral TABLET SR 24 HR Take 0.5 Tabs by mouth TWICE DAILY. ondansetron (ZOFRAN) 4 MG Oral Tab Take 4 mg by mouth EVERY EIGHT HOURS NEEDED (nauase). No current facility-administered medications for this visit. OBJECTIVE: BP 110/70 | Pulse 79 | Temp 98 F (36.7 C) | Ht 5' 4" ( 1.626 m) | Wt 170 lb (77.1 kg) | LMP 10/23/2014 | SpO2 97% | BMI 29.18 kg/m she is alert and in no distress. Chest is clear, no wheezing or rales. Normal symmetric air entry throughout both lung harris. Heart RRR and valve murmur noted. Abdomen soft with mild tenderness epigastric and RUQ. No mass or HSM. ASSESSMENT: ICD-9-CM ICD-10-CM 1. Right sided abdominal pain 789.09 R10.9 US ABDOMEN COMPLETE 2. Epigastric abdominal pain 789.06 R10.13 COMPREHENSIVE METABOLIC PANEL CBC WITH DIFFERENTIAL LIPASE AMYLASE US ABDOMEN COMPLETE 3. Anxiety state 300.00 F41.1 ALPRAZolam (XANAX) 0.25 MG Oral Tab The [facility] I-Stop site was accessed and there was no concerns noted regarding her controlled substance usage. s Patient Instructions Schedule abdominal Ultrasound Lab work today I will notify you of results Try OTC nexium or pepcid AC or tagamet Author: PILO Neff 11/28/2019 11:12 documented in this encounter Plan of Treatment Date Type Specialty Care Team Description 11/29/2019 Ancillary Procedure Radiology 12/11/2019 Office Visit Orthopedics Anette Mullins NP [address] [address] 01/08/2020 Office Visit Cardiology Sushila Kelly CRNP [address] [address] [phone] 02/19/2020 Office Visit Cardiac Surgery Dedrick Smith MD [address] [address] [phone] Name Type Priority Associated Diagnoses Date/Time COMPREHENSIVE METABOLIC Lab Routine Epigastric abdominal 11/28/2019 10:54 AM PANEL pain EST CBC WITH DIFFERENTIAL Lab Routine Epigastric abdominal 11/28/2019 10:54 AM pain EST LIPASE Lab Routine Epigastric abdominal 11/28/2019 10:54 AM pain EST AMYLASE Lab Routine Epigastric abdominal 11/28/2019 10:54 AM pain EST Name Type Priority Associated Diagnoses Order Schedule US ABDOMEN COMPLETE Imaging Routine Right sided abdominal 1 Occurrences starting pain 11/28/2019 until Epigastric abdominal 11/27/2020 pain Health Maintenance Due Date Last Done Comments [...] Type Problems Progress Blood Pressure Blood Pressure 110/70 No Evelyn, < 140/90 (11/28/2019 PILO Zamora 10:23 AM EST) Note: This is an individualized [...] of this encounter Implants Implanted Type Area Lead Caster Device Shelf Model / Identifier Expiration Serial / Lot Date Valve, Inspiris Resilia Aortic 21mm - [id number] N/A: Heart [employer] 11/01/2020 [id number] / Implanted: Qty: 1 on 02/21/2019 by Dedrick Smith MD at [facility] [employer] [id number] / [employer] [place] - [id number] AR[employer] 05/29/2024 [id number] / Implanted: Qty: 1 on 09/13/2019 by Nirmala Diego MD at [facility] / [id number] documented as of this encounter Results Not on filedocumented in this encounter Visit Diagnoses Diagnosis Right sided abdominal pain Abdominal pain, unspecified site Epigastric abdominal pain Abdominal pain, epigastric Anxiety state Anxiety state, unspecified documented in this encounter Insurance Payer Benefit [...]
--- OUTSIDE RECORDS SUMMARY | 2019-12-07 17:15 | XMS REPORT | Summary of Care ---
:1960 Author Organization [facility] Address [address] [place] [address] Care Team Providers Name Role Phone Angelo Hong Primary Care Provider Reason for Visit Reason Comments Surgical Followup S/P 09/13/19 right thumb carpometacarpal tendon arthroplasty ; partial trapezoidectomy; release of 1st extensor compartment Encounter Details Date Type Department Care Team Description 11/13/2019 Office Visit [facility] Anette Mullins, Follow-up exam [address] ANALYTICAL DATA SCIENTIST (Primary Dx) [place] [id number] [address] [phone] [place] [id number] Allergies Active Allergy Reactions Severity Noted Date Comments Hydrocodone GI Reaction 03/24/2011 vomiting documented as of this encounter (statuses as of 11/13/2019) Medications Medication Sig Dispensed Refills Start Date [...] as of this encounter (statuses as of 11/13/2019) Active Problems Problem Noted Date [facility] arthritis [...] as of this encounter (statuses as of 11/13/2019) Resolved Problems Problem Noted Date Resolved Date Sprain of neck 07/09/2014 01/12/2017 Sprain of thoracic region 07/09/2014 01/12/2017 Aortic regurgitation 03/29/2011 04/16/2014 Overview: 03/25/11 TTE FINAL IMPRESSION: Probable bicuspid aortic valve with mild stenosis and moderate to severe aortic regurgitation.LEONARDA=1.5cm2. Mixed hyperlipidemia 06/02/2008 03/15/2013 Unspecified essential hypertension 03/22/2007 01/12/2017 Sciatica 03/22/2007 01/30/2008 documented as of this encounter (statuses as of 11/13/2019) Immunizations Name Administration Dates Next Due dT [...] Sign Reading Time Taken Comments Blood Pressure 132/74 11/13/2019 10:00 AM EST Pulse - - Temperature - - Respiratory Rate - - Oxygen Saturation - - Inhaled Oxygen Concentration - - Weight 73.5 kg (162 lb) 11/13/2019 10:00 AM EST Height 162.6 cm (5' 4") 11/13/2019 10:00 AM EST Body Mass Index 27.81 11/13/2019 10:00 AM EST documented in this encounter Progress Notes Anette Mullins NP - 11/13/2019 9:45 AM EST HAND SURGERY FOLLOW UP NOTE Name: Arlyn Eldridge : 1960 Date of service: 11/13/2019 Chief Complaint Patient presents with Surgical Followup S/P 09/13/19 right thumb carpometacarpal tendon arthroplasty; partial trapezoidectomy; release of 1st extensor compartment Arlyn Eldridge is here today for follow up of above. He states she is doing well. Still some swelling. ROS: Nursing Notes: Santa Haque LPN 11/13/2019 10:02 AM Signed NAME: Arlyn Eldridge : 1960 DATE OF SERVICE: 11/13/2019 CONSTITUTIONAL: negative. HEENT: negative. EYES: negative. RESPIRATORY: negative. CARDIOVASCULAR: negative. GASTROINTESTINAL: negative. GENITOURINARY: negative. INTEGUMENT/BREAST: negative. HEMATOLOGIC/LYMPHATIC: negative. MUSCULOSKELETAL: Negative except s/p right thumb carpometacarpal tendon arthroplasty; partial trapezoidectomy; release of 1st extensor compartment NEUROLOGICAL: negative. BEHAVIORAL/PSYCH: negative. ENDOCRINE: negative. ALLERGIC/IMMUNOLOGIC: negative. AUTHOR: Santa Haque LPN 11/13/2019 10:01 I reviewed the above and have made changes as appropriate. Vitals: BP 132/74 Ht 5' 4" (1.626 m) Wt 162 lb (73.5 kg) LMP 10/23/2014 BMI 27.81 kg/m2 On exam, she is alert and oriented, in no acute distress. Incision well healed. Thumb flexes almostto small finger finger. Good sensation. Brisk cap refill. Assessment: ICD-9-CM ICD-10-CM 1. Follow-up exam V67.9 Z09 Plan: --continue occupational therapy per protocol --will keep her out of work another 4 weeks for range of motion and strengthening --We discussed the expected healing course. "Peak reaction" occurs at about 6 weeks, where the tissue reaction tends to be at its worst, and scars may be thickened and sensitive. Over the next few months, the scar is remodeled, and it softens and fades. Follow up: 4 weeks Anette Mullins NP Hand Surgery 11/13/2019 documented in this encounter Plan of Treatment Date Type Specialty Care Team Description 01/08/2020 Office Visit Cardiology Sushila Kelly CRNP [...] Type Problems Progress Blood Pressure Blood Pressure 132/74 No Evelyn, < 140/90 (11/13/2019 PILO Zamora 10:00 AM EST) Note: This is an individualized treatment (blood pressure) goal for Arlyn Skeltong: Displayed above (on the left) is your goal for blood pressure control. Your most recent blood pressure is also shown above, on the right. You should try to achieve blood pressures that are lower than your goal listed above (on the left). Take all prescribed medications as Self-management Sera Sotelo FNP directed Note: This is an individualized self-management goal for Arlyn Skeltong: Please take all prescribed medications as directed. [...] of this encounter Implants Implanted Type Area At Home Independent Call Center Agent Device Shelf Model / Identifier Expiration Serial / Lot Date Valve, Inspiris Resilia Aortic 21mm - [id number] N/A: Heart [employer] 11/01/2020 [id number] / Implanted: Qty: 1 on 02/21/2019 by Dedrick Simth MD at [facility] [employer] [id number] / [employer] [place] - [id number] [employer] 05/29/2024 [id number] / Implanted: Qty: 1 on 09/13/2019 by Nirmala Diego MD at [facility] / [id number] documented as of this encounter Results Not on filedocumented in this encounter Visit Diagnoses Diagnosis Follow-up exam Unspecified follow-up examination documented in this encounter Insurance Payer Benefit [...]
[2019-12-07] MEDS ORDERED: Ondansetron ODT TAB* 4 MG PO ONE (17:51)
[2019-12-07] MEDS ORDERED: HYDROcodone/ACETAMIN 5-325 MG* 1 TAB PO ONE ×2 (17:51→19:14)
--- NOTE | 2019-12-07 17:58 | ED ---
Upper Extremity Pain - HPI Summary HPI Summary: 59-year-old male presents with right shoulder injury today. She states she fell onto her right shoulder. She states the area has been popping. States that she is unable to raise her shoulder. Denies any previous fracture to the area. She states she just had surgery on her hand a month ago. She is right- handed. 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 She has a history of valve replacement. She denies any numbness or tingling. No head injury. No loss conscious. Denies any neck pain. No other injury. - History of Current Complaint Chief Complaint: EDShoulderClavicJovannyj Stated Complaint: FALL/R SHOULDER PAIN PER PT Time Seen by Provider: 12/07/19 17:41 - Allergies/Home Medications Allergies/Adverse Reactions: Allergies Allergy/AdvReac Type Severity Reaction Status Date / Time No Known Allergies Allergy Verified 12/07/19 16:52 PMH/Surg Hx/FS Hx/Imm Hx Endocrine/Hematology History: Denies: Hx Diabetes Cardiovascular History: Reports: Hx Hypertension - CONTROL WITH MEDS, Hx Valvular Heart Disease - AORTIC VALVE REPLACEMENT, 2010 ([facility]) Denies: Hx Pacemaker/ICD Respiratory History: Denies: Hx Asthma Musculoskeletal History: Reports: Hx Arthritis - LEFT KNEE Sensory History: Reports: Hx Contacts or Glasses - READING GLASSES Denies: Hx Hearing Aid Opthamlomology History: Reports: Hx Contacts or Glasses - READING GLASSES Psychiatric History: Denies: Hx Panic Disorder - Surgical History Surgery Procedure, Year, and Place: 1978 & 1985 LEFT KNEE MENISCUS REPAIR X 2 - [place]/ 2007 ONCE AT [facility] [place] & 1993 CSECTIONS X 2, [place]. 2010 AORTIC HEART VALVE REPLACEMENT, [facility] [employer] Hx Anesthesia Reactions: Yes - N/V WITH GENERAL Infectious Disease History: No Infectious Disease History: Denies: Traveled Outside the [place] in Last 30 Days - Family History Known Family History: Negative: Other - no stroke in family history no adverse reaction to anesthesia. - Social History Alcohol Use: Weekly Hx Substance Use: No Substance Use Type: Reports: None Smoking Status (MU): Never Smoked Tobacco Review of Systems Negative: Fever Negative: Chest Pain Negative: Shortness Of Breath Positive: Myalgia - right shoulder All Other Systems Reviewed And Are Negative: Yes Physical Exam Triage Information Reviewed: Yes Vital Signs On Initial Exam: Initial Vitals Temp Pulse Resp BP Pulse Ox 97.9 F 93 19 153/101 99 12/07/19 16:49 12/07/19 16:49 12/07/19 16:49 12/07/19 16:49 12/07/19 16:49 Vital Signs Reviewed: Yes Appearance: Positive: Well-Appearing Skin: Positive: Warm, Dry Head/Face: Positive: Normal Head/Face Inspection Eyes: Positive: Normal, Conjunctiva Clear ENT: Positive: Pharynx normal Respiratory/Lung Sounds: Positive: Clear to Auscultation, Breath Sounds Present Cardiovascular: Positive: Normal, RRR Musculoskeletal: Positive: Limited @ - right shoulder, Other - good pulses, sensation grossly intact, tenderness right shoulder Neurological: Positive: Normal Psychiatric: Positive: Normal Procedures - Sedation Patient Received Moderate/Deep Sedation with Procedure: No Diagnostics - Vital Signs Vital Signs Temp Pulse Resp BP Pulse Ox 12/07/19 16:49 97.9 F 93 19 153/101 99 - Laboratory Lab Statement: Any lab studies that have been ordered have been reviewed, and results considered in the medical decision making process. - Radiology shoulder Radiology Interpretation Completed By: Radiologist Summary of Radiographic Findings: IMPRESSION: COMMINUTED SLIGHTLY DISPLACED FRACTURE OF THE SURGICAL NECK OF THE HUMERUS. Course/Dx - Course Course Of Treatment: 59-year-old male presents with right shoulder injury today. She states she fell onto her right shoulder. She states the area has been popping. States that she is unable to raise her shoulder. Denies any previous fracture to the area. She states she just had surgery on her hand a month ago. She is right-handed. 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 She has a history of valve replacement. She denies any numbness or tingling. No head injury. No loss conscious. Denies any neck pain. No other injury. On exam has tenderness of her right shoulder. Neurovascularly intact. X-ray shows proximal humerus fracture. Gave sling. Gave pain medication. We'll have follow-up with orthopedic. Patient understands and agrees with the plan. - Diagnoses Differential Diagnosis/HQI/PQRI: Positive: Fracture (Closed), Strain, Sprain Provider Diagnoses: Proximal humerus fracture Discharge ED - Sign-Out/Discharge Documenting (check all that apply): Patient Departure - Discharge Plan Condition: Good Disposition: HOME Prescriptions: HYDROcodone/ACETAMIN 5-325 MG* [Sharon 5-325 TAB*] 1 tab PO Q4H PRN #20 tab MDD 6 PRN Reason: Pain - Severe Patient Education Materials: Arm Fracture in Adults (ED) Referrals: Angelo Hong MD [Primary Care Provider] - Wenceslao Oconnor MD [Medical Doctor] - Additional Instructions: Keep elbow in sling Call ortho office to set up appointment for follow up Use ibuprofen or tyenlol for pain every 6 hours and use norco for breakthrough pain every 4-6 hours Ice Return to ED if develop any new or worsening symptoms - Billing Disposition and Condition Condition: GOOD Disposition: Home - Attestation Statements Provider Attestation: I was available for consult. This patient was seen by the [facility]. The patient was not presented to, seen by, or examined by me. Sebastián Villasenor MD
[2019-12-07] MEDS ORDERED: Ketorolac INJ* 30 MG/ML 1 ML VIAL IM ONE (19:14)
[2019-12-07 19:59] VITALS: BP 101/62
== END 2019-12-07 19:58 | disposition home or self-care (01) ==
LOC: ED 16:48
DX: S42.211A Unspecified displaced fracture of surgical neck of right humerus, initial encounter for closed fracture (principal); W19.XXXA Unspecified fall, initial encounter; Y92.9 Unspecified place or not applicable; I10 Essential (primary) hypertension; Z95.2 Presence of prosthetic heart valve
CPT/HCPCS: 96372; 99282; A9270-GY; J1885